=== PATIENT | female | born 1975 | race Caucasian/White ===

== ENCOUNTER 2020-02-26 11:54 | Emergency (ER) | payer MEDICAID ==
--- NOTE | 2020-02-26 13:22 | EDM.PDOC ---
ED HPI GENERAL MEDICAL PROBLEM - General Chief Complaint: General Stated Complaint: CHEST PAIN Time Seen by Provider: 02/26/20 12:30 Source of Information: Reports: Patient History Limitations: Reports: No Limitations - History of Present Illness INITIAL COMMENTS - FREE TEXT/NARRATIVE: 44-year-old female from out of town, called the clinic today because of a variety of complaints including cough, chest pain, sore throat, nasal congestion and ear pain and she was told to come to the emergency room. Her chest pain is been off and on for 2 months, she does have COPD and is afraid she is been running some low-grade fevers. She has been taking her medications including her inhalers. Most of her pain is the left anterior chest, hurts to breathe. No certain fevers or chills. Cough but nonproductive. Onset: Unknown/Unsure Associated Symptoms: Reports: Chest Pain, Cough, Headaches, Malaise, Shortness of Breath, Weakness. Denies: Nausea/Vomiting Left Upper Chest Pain Score (Numeric/FACES): 6 - Related Data Allergies Allergy/AdvReac Type Severity Reaction Status Date / Time amoxicillin Allergy Abdominal Verified 02/26/20 12:16 Pain levofloxacin [From Levaquin] Allergy Dizziness Verified 02/26/20 12:16 Home Meds: Home Meds Albuterol Sulfate [Albuterol Sulfate Hfa] 8.5 gm IH ASDIRECTED 02/26/20 [History] Budesonide/Formoterol Fumarate [Symbicort 160-4.5 Mcg Inhaler] 2 puff INH BID 02/26/20 [History] Citalopram [Citalopram HBr] 40 mg PO DAILY 02/26/20 [History] Loratadine 10 mg PO DAILY 02/26/20 [History] Montelukast [Singulair] 10 mg PO DAILY 02/26/20 [History] lamoTRIgine 25 mg PO DAILY 02/26/20 [History] Past Medical History [employer] History: Reports: Oncologic (Cancer) History: Reports: Breast - Infectious Disease History Infectious Disease History: Reports: Chicken Pox - Past Surgical History Respiratory Surgical History: Reports: Other (See Below) Other Respiratory Surgeries/Procedures: collapsed lungs, pleurisy Female Surgical History: Reports: Section Oncologic Surgical History: Reports: Mastectomy Social & Family History - Tobacco Use Smoking Status *Q: Current Every Day Smoker Years of Tobacco use: 35 Packs/Tins Daily: 0.5 - Caffeine Use Caffeine Use: Reports: Coffee, Soda - Recreational Drug Use Recreational Drug Use: Yes Drug Use in Last 12 Months: Yes Recreational Drug Type: Reports: Marijuana/Hashish Recreational Drug Use Frequency: Daily ED ROS GENERAL - Review of Systems Review Of Systems: See Below Constitutional: Reports: Malaise, Decreased Appetite. Denies: Fever, Chills HEENT: Reports: Ear Pain, Throat Pain Respiratory: Reports: Shortness of Breath, Cough, Sputum Cardiovascular: Reports: Chest Pain GI/Abdominal: Reports: Abdominal Pain. Denies: Nausea, Vomiting Skin: Reports: No Symptoms Neurological: Reports: Dizziness, Headache Psychiatric: Reports: No Symptoms ED EXAM, GENERAL - Physical Exam Exam: See Below Exam Limited By: No Limitations General Appearance: Alert, No Apparent Distress Eye Exam: Bilateral Eye: Normal Inspection Head: Atraumatic Respiratory/Chest: No Respiratory Distress, Lungs Clear Cardiovascular: Regular Rate, Rhythm GI/Abdominal: Soft, Other (Reacts with some diffuse tenderness to palpation but no focal guarding or rebound, no focal tenderness) Back Exam: Other (Hard to examine because just about anywhere she is palpated she complains of pain) Neurological: Alert, Oriented Psychiatric: Anxious Skin Exam: Warm, Dry Course - Vital Signs Last Recorded V/S: Last Vital Signs Temp 98.2 F 02/26/20 12:17 Pulse 69 02/26/20 12:17 Resp 22 H 02/26/20 12:17 BP 143/87 H 02/26/20 12:17 Pulse Ox 97 02/26/20 12:17 - Orders/Labs/Meds Labs: Laboratory Tests 02/26/20 02/26/20 02/26/20 Range/Units 13:13 13:13 13:13 WBC 9.1 (4.5-11.0) K/uL RBC 4.35 (3.30-5.50) M/uL Hgb 14.0 (12.0-15.0) g/dL Hct 41.4 (36.0-48.0) % MCV 95 (80-98) fL MCH 32 H (27-31) pg MCHC 34 (32-36) % Plt Count 319 (150-400) K/uL Neut % (Auto) 66 (36-66) % Lymph % (Auto) 24 (24-44) % [place] % (Auto) 7 H (2-6) % Eos % (Auto) 2 (2-4) % Baso % (Auto) 1 (0-1) % D-Dimer, Quantitative < 100 (0.0-400.0) ng/mL Sodium 138 L (140-148) mmol/L Potassium 3.9 (3.6-5.2) mmol/L Chloride 104 (100-108) mmol/L Carbon Dioxide 30 (21-32) mmol/L Anion Gap 7.9 (5.0-14.0) mmol/L BUN 5 L (7-18) mg/dL Creatinine 0.8 (0.6-1.0) mg/dL Est Cr Clr Drug Dosing 75.88 mL/min Estimated GFR (MDRD) > 60 (>60) Glucose 98 (74-106) mg/dL Calcium 8.5 (8.5-10.1) mg/dL Total Bilirubin 0.4 (0.2-1.0) mg/dL AST 16 (15-37) U/L ALT 15 (12-78) U/L Alkaline Phosphatase 69 (46-116) U/L Troponin I < 0.017 (0.000-0.056) ng/mL Total Protein 5.9 L (6.4-8.2) g/dL Albumin 3.2 L (3.4-5.0) g/dL Globulin 2.7 (2.3-3.5) g/dL Albumin/Globulin Ratio 1.2 (1.2-2.2) - Re-Assessments/Exams Free Text/Narrative Re-Assessment/Exam: 02/26/20 13:22 CBC CMP d-dimer were obtained as well as a two-view chest x-ray. Two-view chest x-ray showed emphysematous changes but no other acute findings. 02/26/20 14:05 CBC is normal, CMP normal, d-dimer negative and troponin negative. Patient rested comfortably while in the emergency room. She likely has a slight exacerbation of COPD with some pleurisy, so she was put on 40 mg of prednisone daily for the next 5 days. She wanted a COVID test, she can get that when she gets home tomorrow as that will be a more rapid turnaround time for results. Departure - Departure Time of Disposition: 14:16 Disposition: Home, Self-Care 01 Clinical Impression: COPD with acute exacerbation, Pleurisy - Discharge Information Instructions: Chronic Obstructive Pulmonary Disease Exacerbation, [id number] Referrals: PCP,None [Primary Care Provider] - Forms: ED Department Discharge Care Plan Goals: Continue any current medications, and take 40 mg of prednisone with food with your first meal each day. Increase activity as tolerated and recheck in 3 to 4 days if not improving satisfactorily. Sepsis Event Note (ED) - Evaluation Sepsis Screening Result: Possible Sepsis Risk - Focused Exam Vital Signs: Vital Signs Temp Pulse Resp BP Pulse Ox 02/26/20 12:17 98.2 F 69 22 H 143/87 H 97
--- NOTE | 2020-02-26 14:49 | CR ---
CHEST: 2 view CLINICAL HISTORY:Dyspnea COMPARISON:None FINDINGS: There are surgical clips in the right upper outer thorax. The heart size, pulmonary vascularity and hilar structures are normal. No infiltrate effusion or pneumothorax is seen. IMPRESSION: No acute cardiopulmonary process .
== END 2020-02-26 14:17 | disposition home or self-care (01) ==
LOC: JP.ED 11:54
DX: J44.1 Chronic obstructive pulmonary disease with (acute) exacerbation (principal); R09.1 Pleurisy; F17.210 Nicotine dependence, cigarettes, uncomplicated; Z79.899 Other long term (current) drug therapy; Z88.1 Allergy status to other antibiotic agents
CPT/HCPCS: 36415; 71046; 71046-26; 80053; 84484; 85025; 85379; 99283; 99285-25